=== PATIENT | female | born 1990 ===

== ENCOUNTER 2017-05-16 11:04 | Emergency (ER) | payer MEDICAID, OTHER ==
[2017-05-16 11:11] VITALS: BMI 28.0
[2017-05-16 11:12] VITALS: BP 124/80; PULSE 101; RESP 17; TEMP 98.4; O2SAT 100
[2017-05-16] MEDS ORDERED: Oxycodone/Acetaminophen 5/325 mg Tab PO STA (12:23)
--- NOTE | 2017-05-16 12:29 | ED PDOC ---
HPI: Skin/Bite Injury Time Seen by Provider: 05/16/17 12:15 Chief Complaint (Nursing): Abnormal Skin Integrity Chief Complaint (Provider): Abscess History Per: Patient History/Exam Limitations: no limitations Onset/Duration Of Symptoms: Days Current Symptoms Are (Timing): Still Present Quality Of Symptoms: Painful, Swollen Additional History Per: Patient Additional Complaint(s): 27yo female, with recent breast augmentation and abdominoplasty, presents to ED with complaints of pain and swelling to her right axilla, for the past 3 days. Aptient states she has been using a topical anesthetic with mild relief of pain. She reports localized pain and a tactile fever as well. Of note, patient recently finished a 10day course of antibiotics after her surgery. Patient took no medications prior to arrival in ED. Otherwise: (-) chills (-) N/V/D (-) chest pain (-) SOB (-) cough. Past Medical History Reviewed: Historical Data, Nursing Documentation, Vital Signs Vital Signs: Last Vital Signs Temp 98.4 F 05/16/17 11:35 Pulse 101 H 05/16/17 11:35 Resp 17 05/16/17 11:35 BP 124/80 05/16/17 11:35 Pulse Ox 100 05/16/17 15:05 - Medical History PMH: No Chronic Diseases - Surgical History Surgical History: Tonsillectomy, (x 1) Other surgeries: breast augmentation, abdominoplasty - Family History Family History: States: No Known Family Hx - Home Medications Home Medications: Ambulatory Orders Medication Instructions Recorded Naproxen 500 mg PO Q12 #20 tab 05/08/14 Ibuprofen [Motrin] 600 mg PO Q6 PRN #15 tab 12/25/15 Cephalexin [cephalexin] 500 mg PO BID #14 cap 05/16/17 Naproxen 500 mg PO BID PRN #14 tablet 05/16/17 - Allergies Allergies/Adverse Reactions: Allergies Allergy/AdvReac Type Severity Reaction Status Date / Time No Known Allergies Allergy Verified 05/16/17 11:35 Review of Systems ROS Statement: Except As Marked, All Systems Reviewed And Found Negative Constitutional: Positive for: Fever (tactile). Negative for: Chills Skin: Positive for: Other (abscess to right axilla) Physical Exam - Reviewed Nursing Documentation Reviewed: Yes Vital Signs Reviewed: Yes - Physical Exam Comments: GENERAL APPEARANCE: Patient is awake, alert, oriented x 3, in no acute distress. Interacting with friend at beside. SKIN: warm and dry, (+)1cm x 1 cm erythematous, tender, fluctuant abscess to the right anterior axilla with no surrounding cellulitis (-) induration (-) lymphangitis (-) warmth (-) active drainage. PULMONARY: lungs clear to ascultation bilaterally, no rhonchi, no wheezing or rales. CARDIAC: regular rate and rhythm, no murmur, no gallop. ABDOMEN: soft, nontender, nondistended. EXTREMITIES: no deformity, full range of motion, no tenderness. Neuro: Mental status as above. Gait steady. - ECG O2 Sat by Pulse Oximetry: 100 (RA) Pulse Ox Interpretation: Normal Medical Decision Making Medical Decision Making: Impression: Abscess on right axilla Plan: -- Incision and drainage of site -- Keflex PO -- Percocet PO (Patient will not be driving home) 1345 I&D performed. See procedure note below. Patient tolerated procedure well. Sterile dressing applied. 1400 On re-evaluation, patient reports improvement of symptoms. On exam, patient remains AAOx3, in no acute distress. On exam, neck is supple, lungs CTA, cardiac RRR, neuro exam shows no focal findings. Educated on wound care. Advised packing removal in 2 days. VSS. Diagnostic results d/w the patient in great detail. Dx of abscess of axilla d/w the patient. Based on history, exam and diagnostic results plan will be for discharge and outpatient follow up. Advised to follow up with primary care physician in 1-2 days without fail. Advised to take medication as prescribed. Return to the emergency room at any time for any new or worsening symptoms. Patient states she fully agrees with and understands discharge instructions. States that she agrees with the plan and disposition. Verbalized and repeated discharge instructions and plan. I have given the patient opportunity to ask any additional questions. Scribe Attestation: Documented by Sangeeta Frank acting as a scribe for SONJA Shaikh Provider Attestation: All medical record entries made by the Scribe were at my direction and personally dictated by me. I have reviewed the chart and agree that the record accurately reflects my personal performance of the history, physical exam, medical decision making, and the department course for this patient. I have also personally directed, reviewed, and agree with the discharge instructions and disposition. Disposition - Clinical Impression Clinical Impression: Abscess of axilla, right - Patient ED Disposition Is Patient to be Admitted: No Counseled Patient/Family Regarding: Studies Performed, Diagnosis, Need For Followup, Rx Given - Disposition Referrals: [facility] [Outside] Disposition: Routine/Home Disposition Time: 14:02 Condition: STABLE Additional Instructions: PACKING REMOVAL IN 2 DAYS. KEEP WOUND CLEAN AND DRY. Prescriptions: Cephalexin [cephalexin] 500 mg PO BID #14 cap Naproxen 500 mg PO BID PRN #14 tablet PRN Reason: Pain, Moderate (4-7) Instructions: Skin Abscess, Boil (DC), Abscess Incision and Drainage (DC) Forms: [facility] (Upper Sorbian) Print Language: SLOVENIAN - POA Present On Arrival: None - PA / LABORER DRIVER / Resident Statement MD/DO has reviewed & agrees with the documentation as recorded. Procedures - Incision and Drainage Site: Right anterior axilla Blade Size: 11 I & D Procedure: betadine prep, sterile drapes applied Progress: 1cc of Lidocaine w/o Epi used for local anesthesia. Purulent material drained from site and quarter inch packing placed by Tara CANAS. Sterile dressing applied to area. Patient tolerated procedure well.
[2017-05-16] MEDS ORDERED: Oxycodone/Acetaminophen 5/325 mg Tab ONE (12:48)
[2017-05-16] MEDS ORDERED: Lidocaine 1% Inj (20ml) ONE (13:08)
== END 2017-05-16 14:32 | disposition home or self-care (01) ==
LOC: H.ER 11:04
DX: L02.411 Cutaneous abscess of right axilla (principal); Z98.890 Other specified postprocedural states